=== PATIENT | female | born 1975 | race Caucasian/White ===

== ENCOUNTER 2019-07-09 01:22 | Emergency (ER) | payer OTHER ==
[2019-07-09] MEDS ORDERED: Sodium Chloride 0.9% 1,000 ML ONE ×2 (01:45→02:21)
[2019-07-09] MEDS ORDERED: Ondansetron PF 4 MG/2 ML Vial ONE (01:45)
[2019-07-09] MEDS ORDERED: Promethazine HCl 25 MG/ML VIAL ONE (02:21)
[2019-07-09] MEDS ORDERED: Sodium Chloride 0.9% 100 ML ONE (02:21)
== END 2019-07-09 03:27 | disposition home or self-care (01) ==
LOC: MADERS 01:22
DX: F10.129 Alcohol abuse with intoxication, unspecified (principal); R11.2 Nausea with vomiting, unspecified; E03.9 Hypothyroidism, unspecified
CPT/HCPCS: 96361; 96365; 96375; J2405; J2550; J3490; J7050